=== PATIENT | female | born 1960 | race Hispanic/Latino ===

== ENCOUNTER 2019-01-17 06:03 | Observation (INO) | payer OTHER ==
[2019-01-14 13:42] LABS: BASOPHILS % (AUTO) 1.2 % (0.0-5.0); HEMATOCRIT 47.2 % (36-48); LYMPHOCYTES % (AUTO) 32.4 % (21.0-51.0); MEAN CORPUSCULAR HEMOGLOBIN 31.5 pg (27.0-33.0); MEAN CORPUSCULAR HGB CONC 33.7 g/dL (32.0-36.0); MEAN CORPUSCULAR VOLUME 93.5 fL (79-99); MONOCYTES % (AUTO) 7.1 % (3.0-13.0); NEUTROPHILS % (AUTO) 56.3 % (40.0-77.0); PLATELET COUNT (AUTO) 163 K/uL (130-400); RED BLOOD CELL COUNT(AUTO) 5.05 MIL/uL (4.00-5.50); RED CELL DISTRIBUTION WIDTH 13.6 % (11.0-15.5); WHITE BLOOD COUNT (AUTO) 6.5 K/uL (4.8-10.8)
[2019-01-14 13:45] LABS: CREATININE 0.8 mg/dL (0.5-1.5); POTASSIUM 3.9 mmol/L (3.5-5.1)
[2019-01-14 13:51] VITALS: BP 138/80
[2019-01-14 13:56] LABS: INR 0.99 (0.85-1.15); PARTIAL THROMBOPLASTIN TIME 27.6 SEC (26.3-35.5); PROTHROMBIN TIME 10.4 SEC (9.6-11.6)
[2019-01-14] MEDS: CEFAZOLIN SODIUM 1 GM VIAL IVP SCH (15:00)
--- NOTE | 2019-01-15 10:23 | NUR ---
MEDS CALLED DR. NUNES TO INFORM HIM THAT PATIENT HAS NOT TAKEN ELIQUIS FOR "ABOUT 1 MONTH". MESSAGE LEFT WITH HUMBERTO AWAITING FOR FURTHER ORDERS.
--- NOTE | 2019-01-16 16:00 | NUR ---
EUGENIO PAUL LVN ON PHONE. PER DR. NUNES PROCEED WITH PLANNED PROCEDURE.
[2019-01-17] VITALS (14 sets, daily range): BP systolic 104–161; BP diastolic 66–93
[~2019-01-17] VITALS: Ht 152.4 cm; Wt 61.2 kg
[~2019-01-17 06:03] MED LIST: ATOR20TA65 PO; LATA7.5D OU; TIMO1DRO2 OU
--- NOTE | 2019-01-17 06:15 | NUR ---
PATIENT ARRIVED PATIENT ARRIVED TO DAY PATIENT ACCOMPANIED BY SON (KEELY). PATIENT AAO X3, RESPIRATIONS UNLABORED, VITAL SIGNS STABLE. PATIENT DENIES ANY PAIN AT THIS TIME. PROCEDURE EXPLAINED AND VERIFIED WITH PATIENT. ALL QUESTIONS/CONCERNS ANSWERED. HOSPITAL ROUTINE EXPLAINED TO PATIENT. CALL CURRY IN REACH, BED IN LOWEST POSITION, SIDERAILS UP X2.
[2019-01-17] MEDS ORDERED: BUPIVACAINE/PF 0.25% 30ML VIAL IJ ONE (07:12)
[2019-01-17] MEDS ORDERED: LIDOCAINE HCL 1% MDV 50ML VIAL ONE (07:12)
[2019-01-17] MEDS ORDERED: CEFAZOLIN SODIUM 1 GM VIAL ONE (07:12)
--- NOTE | 2019-01-17 07:20 | NUR ---
PATIENT TRANSFERRED PATIENT TAKEN TO HOSTAGE NEGOTIATOR VIA BED BY SINA HICKS. PATIENT'S SON INSTRUCTED TO WAIT AT BEDSIDE.
[2019-01-17] MEDS ORDERED: MEPERIDINE-PF 25 MG/ML SYG ONE ×3 (07:35→08:31)
[2019-01-17] MEDS ORDERED: MIDAZOLAM HCL 1 MG/ML 2ML VIAL ONE ×3 (07:35→08:31)
[2019-01-17] MEDS ORDERED: SODIUM CHLORIDE 0.9% 1000ML 1,000 ML IV ONE (07:40)
--- NOTE | 2019-01-17 09:03 | NUR ---
PATIENT RETURNED PATIENT BROUGHT BACK FROM LEGAL ACTIVITY ADJUDICATOR VIA BED BY [facility] HICKS. PATIENT AWAKE/ORIENTED X3, DROWSY. DRESSING TO LEFT UPPER CHEST WALL IS DRY AND INTACT. PATIENT DENIES ANY PAIN AT THIS TIME. FAMILY MEMBERS AT BEDSIDE. PATIENT INSTRUCTED ON LEFT EXTREMITY PRECAUTIONS/ACTIVITY. PATIENT VERBALIZED UNDERSTANDING. ICE PACK APPLIED TO LEFT UPPER CHEST WALL. CALL CURRY IN REACH, SIDERAILS UP X2, BED IN LOWEST POSITION.
[2019-01-17] MEDS ORDERED: ACETAMINOPHEN-CODEINE 300/30MG TAB ONE (09:51)
--- NOTE | 2019-01-17 09:56 | NUR ---
PAIN ASSESSMENT PATIENT C/O PAIN TO LEFT CHEST WALL. STATES PAIN IS AT A 4 ON A SCALE OF 0-10. ADMINISTERED 1 TYLENOL/CODEINE PILL. WILL CONTINUE TO MONITOR PATIENT.
--- NOTE | 2019-01-17 10:48 | NUR ---
PAIN ASSESSMENT PATIENT C/O PAIN TO LEFT CHEST WALL. PATIENT STATES PAIN IS A 6 ON A SCALE OF 0-10. PATIENT STATES PAIN IS CONSTANT. ADMINISTERED 1 TABLET OF TYLENOL/CODEINE AND WILL CONTINUE TO MONITOR PATIENT FOR RELIEF OF PAIN.
[2019-01-17] MEDS: ACETAMINOPHEN-CODEINE 300/30MG TAB PO PRN ×2 (10:49→18:01)
--- NOTE | 2019-01-17 10:58 | NUR ---
REPORT/HANDOFF COMMUNICATION CALLED SINA MARTINEZ AND GAVE REPORT ON PATIENT USING SBAR. ALL QUESTIONS/CONCERNS ADDRESSED AND ANSWERED.
--- NOTE | 2019-01-17 11:05 | NUR ---
PATIENT TRANSFERRED PATIENT TAKEN TO 228 VIA BED AND FAMILY ACCOMPANIED PATIENT. SINA MARTINEZ IN ROOM WITH PATIENT AND FAMILY MEMBER INSTRUCTED TO WAIT IN LOBBY UNTIL NURSE CALLS THEM TO GO INTO ROOM WITH PATIENT.
[2019-01-17] MEDS: CEFAZOLIN SODIUM 1 GM VIAL IVP SCH (14:45)
--- NOTE | 2019-01-17 19:20 | NUR ---
Ice pack applid to left incisional chest site
[2019-01-17] MEDS: ATORVASTATIN CALCIUM 20 MG TABLET PO SCH ×2 (20:58→21:00)
[2019-01-17] MEDS ORDERED: LATANOPROST 2.5 ML DROPS OU SCH (21:00)
--- NOTE | 2019-01-17 21:03 | NUR ---
Pt. refused bedtime med ,she said she already took it as given by her daughter.
[2019-01-18 04:00] VITALS: BP 131/80
[2019-01-18] MEDS: ACETAMINOPHEN-CODEINE 300/30MG TAB PO PRN (06:48)
[2019-01-18 07:41] VITALS: BP 135/76
[2019-01-18] MEDS ORDERED: METO-391 PO (08:35)
[2019-01-18] MEDS ORDERED: APIX5TAB PO ×2 (08:54→08:56)
[2019-01-18] MEDS ORDERED: TIMOLOL MALEATE OU SCH (09:00)
[2019-01-18] MEDS ORDERED: ONDA4TAB4 PO (09:43)
== END 2019-01-18 13:25 | disposition home or self-care (01) ==
LOC: DAH 06:03 → DAHIP 06:04 → 2DH 11:07
PROVIDERS: ADMIT Internal Medicine; ATTEND Internal Medicine
DX: I49.5 Sick sinus syndrome (principal); E78.5 Hyperlipidemia, unspecified; D68.59 Other primary thrombophilia; I10 Essential (primary) hypertension; I48.0 Paroxysmal atrial fibrillation; Z79.01 Long term (current) use of anticoagulants; Z90.710 Acquired absence of both cervix and uterus; Z81.8 Family history of other mental and behavioral disorders
CPT/HCPCS: 33208; 33286; 36415; 71045; 80048; 85025; 85610; 85730; A4215; A4216; A4221; A4222; A4223 ×3; A4606; C1785; C1898 ×2; G0378 ×31; J0690; J2175 ×2; J2250 ×2; J3490 ×2; J7030; 99156; 99157